=== PATIENT | female | born 1975 | race Hispanic/Latino ===

== ENCOUNTER 2016-09-19 14:36 | Emergency (ER) | payer OTHER ==
[~2016-09-19] VITALS: Ht 167.6 cm; Wt 88.8 kg
[2016-09-19 15:40] LABS: HEMATOCRIT 36.9 % (36.0-46.0); MCH 28.6 PG (29.0-34.0); MCHC 33.3 G/DL (30.0-36.0); MCV 85.8 FL (83-99); PLATELET COUNT 349 K/uL (156-360); RBC DIS.WIDTH-CV 14.8 % (11.8-14.6); RBC DIS.WIDTH-SD 46.5 % (39-53)
[2016-09-19 15:48] LABS: CHLORIDE 106 mEq/L (99-109); POTASSIUM 4.1 mEq/L (3.7-5.4); SODIUM 138 mEq/L (136-147)
[2016-09-19 15:50] LABS: GLUCOSE 97 mg/dL (70-99)
[2016-09-19 15:51] LABS: ANION GAP 9 MEQ/L (2-14)
[2016-09-19 15:52] LABS: TOTAL BILIRUBIN 0.2 mg/dL (0.0-1.0)
[2016-09-19 15:53] LABS: ALKALINE PHOSPHATASE 83 IU/L (3-129)
[2016-09-19 15:54] LABS: GFR ESTIMATE (CALCULATED) > 59 mL/min/
[2016-09-19 15:55] LABS: UREA NITROGEN (BUN) 10 mg/dL (9-23)
[2016-09-19 16:02] LABS: QUANTITATIVE HCG < 4.0 MIU/ML
[2016-09-19 16:58] LABS: ADD MIUA? YES; BILIRUBIN NEGATIVE; BLOOD LARGE; COLOR YELLOW ((YELLOW)); GLUCOSE (STRIP) NEGATIVE; KETONES NEGATIVE; LEUKOCYTES SMALL; NITRITE NEGATIVE; PROTEIN (STRIP) 30; SPECIFIC GRAVITY 1.008 (1.000-1.030); UROBILINOGEN 0.2 MG/DL (0.2-1.0)
[2016-09-19 17:07] LABS: BACTERIA RARE /HPF; EPITHELIAL CELLS RARE /HPF; MUCUS TRACE /LPF; RED BLOOD CELLS TNTC /HPF (0-5); UCUL ADDED? NO; WHITE BLOOD CELLS 30-40 /HPF (0-5)
[2016-09-19 17:50] LABS: LIPASE 36 U/L (1.0-51.0)
[2016-09-19] MEDS ORDERED: KEFLEX500 MG PO (18:37)
[2016-09-19 19:01] VITALS: BP 110/68
== END 2016-09-19 19:02 | disposition home or self-care (01) ==
LOC: EME 14:36
DX: N30.00 Acute cystitis without hematuria (principal); R10.9 Unspecified abdominal pain; R73.03 Prediabetes
CPT/HCPCS: 74177; 80053; 81003; 83690; 84702; 85027; 99281; 99285; J1885; J7030